=== PATIENT | female | born 1940 | race Asian ===

== ENCOUNTER 2020-09-16 16:05 | Emergency (ER) | payer MEDICARE, OTHER ==
[~2020-09-16] VITALS: Ht 157.5 cm; Wt 56.7 kg
[2020-09-16 16:38] VITALS: Ht 157.5 cm; Wt 56.7 kg
[2020-09-16 20:45] LABS: BASOPHIL % 0.5 % (0.2-1.3)
[2020-09-16 20:46] LABS: PLATELET COUNT 183 x10^3mcL (179-408)
[2020-09-16 20:51] LABS: RED CELL DISTRIBUTION WIDTH 16.6 % (12.3-17.7)
[2020-09-16 21:23] LABS: CALCIUM 9.1 mg/dL (8.5-10.1); CARBON DIOXIDE 30.9 mmol/L (21-32); CHLORIDE SERUM 100 mmol/L (98-107); CREATININE SERUM 0.6 mg/dL (0.6-1.0); GLUCOSE SERUM 103 mg/dL (74-106); POTASSIUM SERUM 3.8 mmol/L (3.5-5.1); SODIUM SERUM 135 mmol/L (136-145)
[2020-09-16 21:28] LABS: ALBUMIN 3.7 g/dL (3.4-5.0); ALKALINE PHOSPHATASE 124 U/L (46-116); ALT/SGPT 26 U/L (14-59); AST/SGOT 25 U/L (15-37); BILIRUBIN TOTAL 1.8 mg/dL (0.20-1.00); TOTAL PROTEIN, SERUM 6.8 g/dL (6.4-8.2)
[2020-09-16 23:46] VITALS: BP 117/56
== END 2020-09-16 23:46 | disposition home or self-care (01) ==
LOC: ED 16:05
PROVIDERS: Emergency Medicine
DX: I48.91 Unspecified atrial fibrillation (principal); I50.9 Heart failure, unspecified; J45.909 Unspecified asthma, uncomplicated; Z20.828 Contact with and (suspected) exposure to other viral communicable diseases
CPT/HCPCS: 83880; J1940; J3490; J7050